=== PATIENT | female | born 1950 | race Hispanic/Latino ===

== ENCOUNTER 2016-07-15 09:46 | Emergency (ER) | payer OTHER, MEDICARE ==
[~2016-07-15] VITALS: Ht 152.4 cm; Wt 42.6 kg
--- NOTE | 2016-07-15 10:42 | ED INFLUENZA/URI COMPLAINT ---
History of Present Illness General Chief Complaint: Fever Stated Complaint: NVD,FEVER,CHILLS,BODY ACHES Source: patient, family, old records Exam Limitations: no limitations Vital Signs & Intake/Output Vital Signs & Intake/Output Vital Signs Date Time Temp Pulse Resp B/P Pulse O2 O2 Flow FiO2 Ox Delivery Rate 07/15 1203 98.2 84 20 178/90 07/15 1203 98.2 84 20 17890 07/15 1143 84 17807/15 1006 98.2 87 20 201/98 98 Room Air Room Air Allergies Coded Allergies: No Known Allergies (07/15/16) Reconcile Medications Alendronate Sodium (Fosamax) 70 MG TABLET 1 TAB PO QW OSTEO (Reported) in the morning, at least 30 minutes before the first food, beverage, or medication of the day Alendronate Sodium (Fosamax) 70 MG TABLET 1 TAB PO QW BONE HEALTH in the morning, at least 30 minutes before the first food, beverage, or medication of the day Amlodipine Besylate/Benazepril (Amlodipine-Benazepril 10-20 MG) 10 MG-20 MG CAPSULE 1 CAP PO DAILY HTN (Reported) Amlodipine Besylate/Benazepril (Lotrel 10-20 MG Capsule) 10 MG-20 MG CAPSULE 1 CAP PO DAILY HTN Aspirin (Aspirin*) 81 MG TAB.CHEW 1 TAB PO DAILY HEART HEALTH (Reported) Azithromycin (Zithromax) 250 MG TABLET 1 DP PO AD BRONCHITIS 2 the first day followed by 1 for days 2-5 Leflunomide (Arava) 10 MG TABLET 1 TAB PO DAILY RA (Reported) Leflunomide (Arava) 10 MG TABLET 1 TAB PO DAILY RA Methylprednisolone (Medrol) 4 MG TABLET 1 TAB PO DAILY RA Methylprednisolone. (Medrol) 4 MG TAB.DS.PK 1 DP PO AD RA (Reported) 6 on day 1 then reduce by one tablet daily until gone Nabumetone 750 MG TABLET 1 TAB PO BID RA (Reported) Nabumetone 750 MG TABLET 1 TAB PO DAILY RA Triage Note: PT TO ED WITH C/O COUGH, CONGESTION, PT STATING "SPUTUM GREEN". Triage Nurses Notes Reviewed? yes Onset: Abrupt Duration: week(s):, constant Timing: recent history Severity: mild, moderate Severity Numbers: 6 Prior Episodes/Possible Cause: occassional episodes No Modifying Factors: none Associated Symptoms: cough, muscle aches, nasal congestion HPI: This is a 66-year-old female with history of rheumatoid arthritis lupus hypertension who has been without her medications since May presenting emergency room today with her family complaining of cough productive of green sputum congestion and rhinorrhea since June 29. She has not attempted taking any [id number] medications for her symptoms however reports multiple sick contacts at home with similar symptoms. She does not smoke no history of COPD or asthma. She denies any shortness of breath chest pain abdominal pain nausea vomiting diarrhea. No sore throat ear pain headache, rashes to her skin. There are no modifying factors or associated symptoms otherwise (VANESSA BRAND) Past History Travel History Traveled to [place] past 21 day No Medical History Any Pertinent Medical History? see below for history Neurological: NONE EENT: NONE Cardiovascular: hypertension Respiratory: NONE Gastrointestinal: NONE Hepatic: NONE Renal: NONE Musculoskeletal: osteoarthritis, LUPUS Psychiatric: NONE Endocrine: NONE Blood Disorders: NONE Cancer(s): NONE JOB ANALYST/Reproductive: NONE Surgical History Surgical History: none Psychosocial History What is your primary language Irish Tobacco Use: Never used ETOH Use: denies use Illicit Drug Use: denies illicit drug use Family History Hx Contributory? No (VANESSA BRAND) Review of Systems Review of Systems Constitutional: Reports: see HPI. All Other Systems: Reviewed and Negative Comments Review of systems: See HPI, All other systems negative. Constitutional, no chills no fever, no malaise HEENT: No visual changes no sore throat congestion, no ear pain Cardiovascular: No chest pain , no palpitation , no orthopnea Skin, no rashes, no change in skin Respiratory: No dyspnea cough no sputum no hemoptysis GI: No nausea no vomiting, no diarrhea, no bloating/constipation : No dysuria Muscle skeletal: No joint pain, no joint swelling, no back pain, no neck pain, Neurologic: No numbness no headache Psych: No stress Heme/endocrine: No bruising no bleeding Immunology: No lymphadenopathy, (VANESSA BRAND) Physical Exam Physical Exam General Appearance: well developed/nourished, no apparent distress, alert, awake Ears, Nose, Throat: normal ENT inspection, moist mucous membrane, hearing grossly normal, Tympanic normal Comments: Well-developed well-nourished person in no acute distress Head/Face: Atraumatic, no maxillary/frontal sinus tenderness, no facial swelling Eyes: PERRL, EOMI, no conjunctival injection Ear:External auditory canal and Tympanic membranes clear, no erythema, no FB. Nose: atraumatic.Normal inspection Throat: Moist mucous membranes.Pharynx normal. No pharyngeal erythema/exudate seen. No stridor/drooling or assymetry. No swelling or edema. Neck: Supple, no lymphadenopathy, FROM Back: Nontender, no CVA tenderness. Full range of motion Cardiovascular: Regular rate and rhythms no murmurs rubs Respiratory: Chest nontender.There were no bony deformities, no asymmetry. No respiratory distress. Patient speaking in full complete sentences. Breath sounds clear to auscultation bilaterally: NO W/R/R Abdomen: Soft, nontender nondistended, no appreciable organomegaly. No rebound/ guarding Extremity: No edema, full range of motion of extremities Neuro: Alert oriented x3, motor sensory normal. There were no obvious focal neurologic abnormalities. Skin: No appreciable rash on exposed skin, skin is warm and dry. Psych: Mood and affect is normal, memory and judgment is normal. Core Measures Severe Sepsis Present: No Septic Shock Present: No (VANESSA BRAND) Progress Differential Diagnosis: influenza, otitis, pneumonia, pharyngitis, sinusitis, HYPERTENSIVE URGENCY EMERGENCY Plan of Care: Orders Procedure Date/time Status RAPID VIRAL INFLUENZA A 07/15 1050 Complete CBC WITHOUT DIFFERENTIAL 07/15 1050 Complete BASIC METABOLIC PANEL 07/15 1050 Complete Current Medications Sig/Luigi Start time Last Medication Dose Stop Time Status Admin Amlodipine Besylate 10 MG ONCE ONE 07/15 1100 CAN (Norvasc) 07/15 1101 Laboratory Tests 07/15/16 1130: Anion Gap 8, Estimated GFR > 60, BUN/Creatinine Ratio 21.7, Glucose 94, Calcium 8.4, CBC w Diff NO MAN DIFF REQ, RBC 4.45, MCV 77.8 L, MCH 25.5 L, RDW 16.8 H , MPV 8.3, Gran % 77.0 H, Lymphocytes % 15.9 L, Monocytes % 3.6, Eosinophils % 3.3, Basophils % 0.2, Absolute Granulocytes 3.7, Absolute Lymphocytes 0.8 L, Absolute Monocytes 0.2, Absolute Eosinophils 0.2, Absolute Basophils 0, PUBS MCHC 32.9 L Labs ordered old records reviewed patient was medicated with her blood pressure medication here Case discussed with Dr. ALVARADO I discussed with the patient and her family at least all of her lab results x- ray findings. Patient was provided with medication refill of her medication in addition with his azithromycin she'll follow-up with her primary care physician this week she will return anytime sooner for symptoms worsen the patient feels comfortable this plan she is ambulatory around the emergency room with steady gait without dyspnea A feel comfortable with this plan (LUIS STRINGER,VANESSA) Diagnostic Imaging: Viewed by Me: Radiology Read. Discussed w/RAD: Radiology Read. Radiology Impression: PATIENT: MARA MENDIETA PRESENT AGE: 66 PATIENT ACCOUNT NO: [id number] : 48 LOCATION: [facility] ORDERING PHYSICIAN: VANESSA STRINGER SERVICE DATE: 07/15/16-105 EXAM TYPE: RAD - XRY-CHEST XRAY, PA AND LATERAL EXAMINATION: XR CHEST CLINICAL INFORMATION: Chest pain. Cough and fever. COMPARISON: None on record. TECHNIQUE: 2 views of the chest were obtained. FINDINGS: Heart is mildly to moderately enlarged. Descending thoracic aorta is tortuous. The cardiomediastinal silhouette is otherwise within normal limits. Lungs appear mildly hyperexpanded and clear. There is mild smooth right apical pleural thickening likely chronic change. There is no evidence of pneumothorax or pulmonary edema. Included osseous structures appear largely unremarkable. IMPRESSION: Cardiomegaly, no evidence of an acute intrathoracic process. Question mild COPD changes. DICTATED BY: IMELDA MARTINEZ MD DATE/TIME DICTATED:07/15/161118 GLOST PLACER:[place] DATE/ TIME TRANSCRIBED:07/15/161118 CONFIDENTIAL, DO NOT COPY WITHOUT APPROPRIATE AUTHORIZATION. <Electronically signed in Other Vendor System> SIGNED BY: IMELDA MARTINEZ MD 07/15/16 1125 Initial ED EKG: none (VANESSA BRAND) Departure Departure Time of Disposition: 1216 Disposition: HOME OR SELF CARE Condition: Stable Clinical Impression Primary Impression: Bronchitis Referrals: PATIENT HAS NO PRIMARY CARE DR (PCP/Family) Additional Instructions: Follow-up with your primary care physician as discussed. Z-Estevan as directed. All of your other medications in addition to this was sent to the [facility] pharmacy Departure Forms: Customer Survey General Discharge Information Prescriptions: Current Visit Scripts Azithromycin (Zithromax) 1 DP PO AD #6 TAB 2 the first day followed by 1 for days 2-5 Amlodipine Besylate/Benazepril (Lotrel 10-20 MG Capsule) 1 CAP PO DAILY #30 CAP Leflunomide (Arava) 1 TAB PO DAILY #30 TAB Nabumetone 1 TAB PO DAILY #30 TAB Alendronate Sodium (Fosamax) 1 TAB PO QW #4 TAB in the morning, at least 30 minutes before the first food, beverage, or medication of the day Methylprednisolone (Medrol) 1 TAB PO DAILY #14 TAB (VANESSA BRAND) PA/CHAINSAW MECHANIC Co-Sign Statement Statement: ED Attending supervision documentation- [X] I saw and evaluated the patient. I have also reviewed all the pertinent lab results and diagnostic results. I agree with the findings and the plan of care as documented in the PA's/CHAINSAW MECHANIC's documentation. [] I have reviewed the ED Record and agree with the PA's/CHAINSAW MECHANIC's documentation. [] Additions or exceptions (if any) to the PAs/CHAINSAW MECHANIC's note and plan are summarized below: [] (MILVIA ALVARADO DO)
[2016-07-15] MEDS ORDERED: ASPIRIN81 M4 PO (10:50)
[2016-07-15] MEDS ORDERED: MEDROL4 M2 PO (10:51)
[2016-07-15] MEDS ORDERED: FOSAMAX70 M1 PO ×2 (10:51→12:19)
[2016-07-15] MEDS ORDERED: ARAVA10 M1 PO ×2 (10:51→12:19)
[2016-07-15] MEDS ORDERED: NABUMETONE750 M1 PO ×2 (10:52→12:19)
[2016-07-15] MEDS ORDERED: AMLODIPINE-BEN1 EAC4 PO (10:52)
--- NOTE | 2016-07-15 11:25 | RADIOLOGY REPORT ---
EXAMINATION: XR CHEST CLINICAL INFORMATION: Chest pain. Cough and fever. COMPARISON: None on record. TECHNIQUE: 2 views of the chest were obtained. FINDINGS: Heart is mildly to moderately enlarged. Descending thoracic aorta is tortuous. The cardiomediastinal silhouette is otherwise within normal limits. Lungs appear mildly hyperexpanded and clear. There is mild smooth right apical pleural thickening likely chronic change. There is no evidence of pneumothorax or pulmonary edema. Included osseous structures appear largely unremarkable. IMPRESSION: Cardiomegaly, no evidence of an acute intrathoracic process. Question mild COPD changes.
[2016-07-15 11:38] LABS: ABSOLUTE BASOPHIL COUNT 0 /CUMM (0.0-0.2); ABSOLUTE EOSINOPHIL COUNT 0.2 /CUMM (0.0-0.7); ABSOLUTE GRANULOCYTE CT 3.7 /CUMM (1.4-6.5); ABSOLUTE LYMPH COUNT 0.8 /CUMM (1.2-3.4); ABSOLUTE MONOCYTE COUNT 0.2 /CUMM (0.10-0.60); BASOPHIL % 0.2 % (0.0-2.0); EOSINOPHIL % 3.3 % (0-5); HEMATOCRIT 34.6 % (37-47); MEAN CORPUSCULAR HGB 25.5 PG (27.0-31.0); MEAN CORPUSCULAR HGB CONC 32.9 G/DL (33.0-37.0); MEAN CORPUSCULAR VOLUME 77.8 FL (81.0-99.0); MEAN PLATELET VOLUME 8.3 FL (7.4-10.4); PLATELET COUNT 258 /CUMM (130-400); RBC DISTRIBUTION WIDTH 16.8 % (11.5-14.5); RED BLOOD CELL CT 4.45 /CUMM (4.20-5.40); WHITE BLOOD CELL COUNT 4.8 /CUMM (4.8-10.8)
[2016-07-15 12:03] VITALS: BP 178/90
[2016-07-15] MEDS ORDERED: ZITHROMAX250 M2 PO (12:19)
[2016-07-15] MEDS ORDERED: MEDROL4 M1 PO (12:19)
[2016-07-15] MEDS ORDERED: LOTREL 10-20 M1 EACH PO (12:19)
== END 2016-07-15 12:33 ==
LOC: ERH 09:46
PROVIDERS: Physician Assistant Medical
DX: J40 Bronchitis, not specified as acute or chronic (principal)
CPT/HCPCS: 87804; 87804-59